=== PATIENT | female | born 2000 | race Two or more races ===

== ENCOUNTER 2024-03-22 20:10 | Observation (INO) | payer MEDICAID ==
[~2024-03-22] VITALS: Ht 152.4 cm; Wt 81.6 kg
[2024-03-22] MEDS: TERBUTALINE SULFATE 1 MG/ML 1ML VIAL SC SCH (21:39)
[2024-03-22] MEDS: LACTATED RINGER'S 1,000 ML IV ONE (21:59)
[2024-03-22] MEDS: ONDANSETRON HCL 4 MG/2 ML VIAL IV ONE (22:16)
[2024-03-22] MEDS: LACTATED RINGER'S 1,000 ML IV SCH (23:07)
[2024-03-22] MEDS: NIFEdipine 10 MG CAP PO ONE (23:55)
--- NOTE | 2024-03-27 12:55 | DVHDS2 ---
Physician Discharge Progress N Final Diagnosis: abd pain Operations or Procedures: Operations or Procedures nst,sono Condition on Discharge: Good Disposition: Home Discharge Instructions: Diet: Regular Activity: Light activity Medications: na Follow Up Care: Specialist: 2d Discharge Statement: "Patient was advised to return to the ER or call 911 if any headaches, dizziness, shortness of breath, chest pain, abdominal pain, bleeding, fevers, or worsening of medical condition. Patient was counseled about treatment plan, medications, possible side effects, patientverbalized understanding. All questions were answered to the best of my ability. This discharge took greater then 30 minutes in planning, reviewing documentation, counseling the patient, and discussing with other team members." MIKI EDGE DO Mar 27, 2024 12:55
== END 2024-03-23 00:50 | disposition home or self-care (01) ==
LOC: LDRP 20:10 → UNDOADMOB 20:10 → LDRP 20:18
PROVIDERS: ADMIT Obstetrics & Gynecology; ATTEND Obstetrics & Gynecology
DX: O26.892 Other specified pregnancy related conditions, second trimester (principal); R10.31 Right lower quadrant pain; Z3A.27 27 weeks gestation of pregnancy; Z79.899 Other long term (current) drug therapy
CPT/HCPCS: 59025; 81002; 94760; 96361; 96372; 96374; G0378; J2405; J3105; 96360

== ENCOUNTER 2025-01-30 16:55 | Emergency (ER) | payer MEDICAID ==
[~2025-01-30] VITALS: Ht 152.4 cm; Wt 77.3 kg
--- NOTE | 2025-01-30 18:37 | DVH ---
EXAM: US GALLBLADDER CLINICAL HISTORY: R/O acute cholecystitis TECHNIQUE: Grayscale and limited color flow doppler ultrasound of the right upper quadrant is perfor med. COMPARISON: None Findings: Liver measures 17.5 cm in length with increased echotexture and contour. No evidence of focal hepatic lesions or intra- or extrahepatic ductal dilatation. Common bile duct measures 0.5 cm in diameter. N ormal hepatopedal flow noted within the portal vein. No perihepatic free fluid is noted. Gallbladder appears within normal limits with gallbladder wall thickness measuring 0.2 cm. There is b iliary sludge and shadowing calculi. No evidence of pericholecystic fluid. Negative sonographic Murp hy's sign. Pancreas only partially visualized due to overlying bowel gas but is otherwise unremarkable. Right kidney measures 10.3 cm with normal contours, echotexture and cortical thickness. No evidence o f hydronephrosis, calculi, cystic or solid renal lesions. Partially visualized inferior vena cava unremarkable. Impression: 1. No evidence of acute right upper quadrant abnormalities. 2. Hepatomegaly with hepatic steatosis. 3. Cholelithiasis without evidence of acute cholecystitis.
[2025-01-30] MEDS: SODIUM CHLORIDE 0.9% 500 ML IVB ONE (18:40)
--- NOTE | 2025-01-30 18:42 | ED.PDOC ---
GI ASSESSMENT HPI Comments Bri Howell is a 24-year-old female with no relevant past medical history. The patient came to the ED with the chief complain of 3 days of acute RUQ abdominal pain 7/10, intermittent, colicky, that irradiates to the back, that increases with food, associated with nausea and vomit #1 of bile content. On further questioning the patient reports she has 1 month off and on symptoms. On 01/27/25 the patient consulted at [facility], they performed a US that per the patient reported gallstones. Today, the patient increases to 9/10 with nausea and bilious vomit #1, this prompted her visit to the ED. The patient denies fever, chills, diarrhea, or other symptoms. Chief Complaint: Abdominal Pain Time Seen by MD: 16:58 Reviewed Notes: Nurses Notes, Medications, Allergies Allergies: Coded Allergies: NO KNOWN ALLERGIES (Unverified , 03/22/24) Home Meds Active Scripts Ketorolac Tromethamine (Ketorolac Tromethamine) 10 Mg Tab, 10 MG PO BIDPRN PRN for 10 Days, #20 TAB 0 Refills Prov:ANANT COLE RESIDENT 01/30/25 Information Source: Patient Mode of Arrival: Ambulatory Timing: Days Duration: Since onset Quality: Colicky Vomitus: Bilious Stool: Normal Severity: Moderate Recent: None Recent Hx of: None Pain Location: RUQ Modifying Factors: Food Associated sign and symptoms: Nausea, Vomiting, Abdominal Pain Past Medical History PAST MEDICAL HISTORY: Denies Surgical History: Denies all surgeries 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 Hx (Last menstrual period: 01/12/2025) Family History Family History (Other): Maternal aunt with gallstones Social History Smoker: Non-Smoker Alcohol: Denies ETOH Use Drugs: Denies Drug Use Lives In: Home Constitutional: denies: chills, diaphoresis, fatigue, fever, malaise, sweats, weakness, others EENTM: denies: blurred vision, double vision, ear bleeding, ear discharge, ear drainage, ear pain, ear ringing, eye pain, eye redness, hearing loss, mouth pain, mouth swelling, nasal discharge, nose bleeding, nose congestion, nose pain, photophobia, tearing, throat pain, throat swelling, voice changes, others Respiratory: denies: cough, hemoptysis, orthopnea, SOB at rest, shortness of breath, SOB with excertion, stridor, wheezing, others Cardiovascular: denies: chest pain, dizzy spells, diaphoresis, Dyspnea on exertion, edema, irregular heart beat, left arm pain, lightheadedness, palpitations, PND, syncope, others Gastrointestinal: reports: abdominal pain, vomiting; denies: abdomen distended, blood streaked bowels, constipated, diarrhea, dysphagia, difficulty swallowing, hematemesis, melena, nausea, poor appetite, poor fluid intake, rectal bleeding, rectal pain, others Genitourinary: denies: abnormal vagina bleeding, burning, dyspareunia, dysuria, flank pain, frequency, hematuria, incontinence, pain, , vagina discharge, urgency, others Neurological: denies: dizziness, fainting, headache, left sided numbness, left sided weakness, numbness, paresthesia, pre-existing deficit, right sided numbness, right sided weakness, seizure, speech problems, tingling, tremors, weakness, others Musculoskeletal: denies: back pain, gout, joint pain, joint swelling, muscle pain, muscle stiffness, neck pain, others Integumetry: denies: bruises, change in color, change in hair/nails, dryness, laceration, lesions, lumps, rash, wounds, others Allergic/Immunocompromised: denies: Difficulty Healing, Frequent Infections, Hives, Itching, others Hematologic/Lymphatic: denies: anemia, blood clots, easy bleeding, easy bruising, swollen glands, others Endocrine: denies: excessive hunger, excessive sweating, excessive thirst, excessive urination, flushing, intolerance to cold, intolerance to heat, unexplained weight gain, unexplained weight loss, others Psychiatric: denies: anxiety, bipolar disorder, depression, hopeless, panic disorder, schizophrenia, sleepless, suicidal, others Physical Exam General Appearance: Moderate Distress HEENT: Normal ENT Inspection, Pharynx Normal, TMs Normal Neck: Full Range of Motion, Non-Tender, Normal, Normal Inspection Respiratory: Chest Non-Tender, Lungs Clear, No Accessory Muscle Use, No Respiratory Distress, Normal Breath Sounds Cardiovascular: No Edema, No JVD, No Murmur, No Gallop, Normal Peripheral Pulses, Regular Rate/Rhythm Breast Exam: Deferred Gastrointestinal: Normal Bowel Sounds, RUQ (Yadav sign positive), Soft, Tenderness Genitalia: Deferred Pelvic: Deferred Rectal: Deferred Extremities: No calf tenderness, Normal capillary refill, Normal inspection, Normal range of motion, Non-tender, No pedal edema Neurologic: Alert, medical research tech II-XII nml as Tested, No Motor Deficits, Normal Affect, Normal Mood, No Sensory Deficits Cerebellar Function: Normal Reflexes: Normal Skin: Dry, Normal Color, Warm Lymphatic: No Adenopathy Was a procedure done? Was a procedure done?: No GI differential Dx Differential Diagnosis: Cholangitis, Cholecystitis, Pancreatitis Other Differential Diagnosis #Cholelithiasis X-Ray, Labs, Meds, VS Vital Signs Date Time Temp Pulse Resp B/P (MAP) Pulse Ox O2 Delivery O2 Flow Rate FiO2 01/30/25 18:50 99.1 71 18 103/63 (76) 100 99.1 01/30/25 18:50 71 18 99 Room Air 01/30/25 16:56 97.9 71 20 133/68 100 97.9 Lab Test 01/30/25 19:01 Range/Units White Blood Count 11.2 H 4.4-10.8 10^3/uL Red Blood Count 4.25 4.0-5.20 10^6/uL Hemoglobin 12.0 L 12.2-16.2 g/dL Hematocrit 36.4 36.0-46.0 % Mean Corpuscular Volume 85.6 80.0-100.0 fL Mean Corpuscular Hemoglobin 28.3 28.0-32.0 pg Mean Corpuscular Hemoglobin Concent 33.1 32.0-36.0 g/dL Red Cell Distribution Width 13.8 11.8-14.3 % Platelet Count 280 140-450 10^3/uL Mean Platelet Volume 8.0 6.9-10.8 fL Neutrophils (%) (Auto) 82.9 H 37.0-80.0 % Lymphocytes (%) (Auto) 10.8 10.0-50.0 % Monocytes (%) (Auto) 5.6 0.0-12.0 % Eosinophils (%) (Auto) 0.5 0.0-7.0 % Basophils (%) (Auto) 0.2 0.0-2.0 % Neutrophils # (Auto) 9.3 H 1.6-8.6 10 ^3/uL Lymphocytes # (Auto) 1.2 0.4-5.4 10 ^3/uL Monocytes # (Auto) 0.6 0-1.3 10 ^3/uL Eosinophils # (Auto) 0.1 0-0.8 10 ^3/uL Basophils # (Auto) 0 0-0.2 10 ^3/uL Nucleated Red Blood Cells 0.0 % Sodium Level 139 136-145 mmol/L Potassium Level 3.9 3.5-5.1 mmol/L Chloride Level 105 98-107 mmol/L Carbon Dioxide Level 26 20-31 mmol/L Anion Gap 8 5-15 Blood Urea Nitrogen 12 9-23 mg/dL Creatinine 0.65 0.550-1.02 mg/dL Glomerular Filtration Rate Calc 126 >90 mL/min BUN/Creatinine Ratio 18.5 10.0-20.0 Serum Glucose 107 H 74-106 mg/dL Calcium Level 8.7 8.7-10.4 mg/dL Total Bilirubin 1.2 H 0.2-1.0 mg/dL Aspartate Amino Transferase (AST) 106 H 13-40 U/L Alanine Aminotransferase (ALT) 59 H 7-40 U/L Alkaline Phosphatase 52 46-116 U/L Total Protein 7.0 5.7-8.2 g/dL Albumin 4.4 3.2-4.8 g/dL Lipase 30 12-53 U/L Current Medications Medications (Trade) Dose Ordered Sig/Sri Route Start Time Stop Time Status Last Admin Ondansetron HCl (Zofran) 4 mg ONCE ONCE IV 01/30/25 18:15 01/30/25 18:16 DC 01/30/25 18:47 Sodium Chloride 500 ml @ 500 mls/hr Q1H ONCE IVB 01/30/25 18:15 01/30/25 19:14 DC 01/30/25 18:40 Ketorolac Tromethamine (Toradol Injection) 30 mg ONCE ONCE IV 01/30/25 18:15 01/30/25 18:16 DC 01/30/25 18:46 X-Ray, Labs, Meds, VS Comment The patient was re-evaluated, VS are within normal limits. The abdominal pain has improved after analgesics. USG showed: Gallbladder appears within normal limits with gallbladder wall thickness measuring 0.2 cm. There is biliary sludge and shadowing calculi. No evidence of pericholecystic fluid. Negative sonographic Yadav's sign, no evidence of acute right upper quadrant abnormalities. Hepatomegaly with hepatic steatosis. Cholelithiasis without evidence of acute cholecystitis. Time of 1ST Reevaluation: 20:25 Reevaluation 1ST: Improved Patient Education/Counseling: Diagnosis, Treatment, Prognosis, Need For Follow Up Family Education/Counseling: No Family Present SEPSIS Sepsis Screen Date sepsis recognized/suspect: Jan 30, 2025 Time Sepsis recognized/suspect: 1699 Recent Procedure: No On Antibiotic Therapy: No Respiratory Rate >20: No Heart Rate >90: No Temp<36 C (96.8 F) or >38.3 C: No SBP <90 or MAP <65 mmHG: No New Acute Mental Status Change: No Is the patient on CPAP, BIPAP,: No Physician Orders Urinalysis (01/30/25 18:01) Urine (01/30/25 18:01) Gallbladder (01/30/25 18:01) Vital Signs Date Time Temp Pulse Resp B/P (MAP) Pulse Ox O2 Delivery O2 Flow Rate FiO2 01/30/25 18:50 99.1 71 18 103/63 (76) 100 99.1 01/30/25 18:50 71 18 99 Room Air 01/30/25 16:56 97.9 71 20 133/68 100 97.9 Laboratory Tests Test 01/30/25 19:01 White Blood Count 11.2 10^3/uL (4.4-10.8) H Medications Medications Dose Ordered Sig/Sri Route Start Time Stop Time Status Last Admin Dose Admin Ketorolac Tromethamine 30 mg ONCE ONCE IV 01/30/25 18:15 01/30/25 18:16 DC 01/30/25 18:46 Ondansetron HCl 4 mg ONCE ONCE IV 01/30/25 18:15 01/30/25 18:16 DC 01/30/25 18:47 Sodium Chloride 500 ml @ 500 mls/hr Q1H ONCE IVB 01/30/25 18:15 01/30/25 19:14 DC 01/30/25 18:40 Departure 1 Departure Time of Disposition: 20:45 Impression: Primary Impression: Cholelithiasis Additional Impression: Hepatic steatosis Disposition: HOME / SELF CARE / HOMELESS Condition: Good Referrals Referral to surgery for elective cholecystectomy. D/C Clinic to establish care Referrals: DANIE GUTIERRES MD Additional Instructions: Avoid greasy food. Ibuprofen 600mg po qr8 prn for pain (over the counter) F/U with PCP in 1 week. e-Prescriptions Ketorolac Tromethamine (Ketorolac Tromethamine) 10 Mg Tab 10 MG PO BIDPRN PRN for 10 Days, #20 TAB 0 Refills Prov: ANANT COLE RESIDENT 01/30/25 Discharged With: Self Comments Goals of care discussed with the patient > 35 min. Discussed plan of care with Dr. Sims Code status: Full code PCP: Not established yet. F/U in discharge clinic to establish care Plan discussed with: Patient, the patient agrees with the plan. Critical Care Note Critical Care Time?: No Stability Stability form required: No Stable for transfer: N/A Unstable for transfer: N/A Heart Score Heart Score: Heart Score Response (Comments) Value History N/A 0 EKG N/A 0 Age N/A 0 Risk Factors N/A 0 Troponin N/A 0 Total 0 MAXIMILIAN BRANDON RESIDENT Jan 30, 2025 18:42
[2025-01-30] MEDS: KETOROLAC TROMETH 30 MG/ML 1ML VIAL IV ONE (18:46)
[2025-01-30] MEDS: ONDANSETRON HCL 4 MG/2 ML VIAL IV ONE (18:47)
[2025-01-30 18:50] VITALS: BP 103/63; PULSE 71; RESP 18; TEMP 99.1; O2SAT 99
[2025-01-30 19:16] LABS: Hematocrit 36.4 % (36.0-46.0); Hemoglobin 12.0 g/dL (12.2-16.2); Mean Corpuscular Hemoglobin 28.3 pg (28.0-32.0); Mean Corpuscular Volume 85.6 fL (80.0-100.0); Nucleated Red Blood Cells % 0.0 %
[2025-01-30 19:32] LABS: Albumin 4.4 g/dL (3.2-4.8); Alkaline Phosphatase 52 U/L (46-116); Anion Gap 8 (5-15); BUN/Creatinine Ratio 18.5 (10.0-20.0); Blood Urea Nitrogen 12 mg/dL (9-23); Calcium 8.7 mg/dL (8.7-10.4); Carbon Dioxide 26 mmol/L (20-31); Chloride 105 mmol/L (98-107); Lipase 30 U/L (12-53); Potassium 3.9 mmol/L (3.5-5.1); Sodium 139 mmol/L (136-145); Total Protein 7.0 g/dL (5.7-8.2)
[2025-01-30 19:33] LABS: Alanine Aminotransferase 59 U/L (7-40); Bilirubin, Total 1.2 mg/dL (0.2-1.0); Glucose 107 mg/dL (74-106)
[2025-01-30] MEDS ORDERED: KETO10TA PO (20:34)
== END 2025-01-30 20:46 | disposition home or self-care (01) ==
LOC: ER 16:55
DX: K80.20 Calculus of gallbladder without cholecystitis without obstruction (principal); K76.0 Fatty (change of) liver, not elsewhere classified
CPT/HCPCS: 36415; 76705; 80053; 83690; 85025; 96374; 96375; 99285; J1885; J2405; J7040